=== PATIENT | male | born 1990 | race Hispanic/Latino ===

== ENCOUNTER 2019-05-07 18:02 | Emergency (ER) | payer MEDICAID, SELFPAY ==
[2019-05-07 18:04] VITALS: BP 153/102; PULSE 83; RESP 17; TEMP 36; O2SAT 99; BMI 33.3
--- NOTE | 2019-05-07 18:25 | ED.DCSUM_ITS ---
- ER Visit Summary Date of Service: 05/07/19 Chief Complaint: Suicidal ideation History of Present Illness: The patient is a 28 M presenting with suicidal ideation. Patient states he called the police because he was concerned that he may kill himself. He told the police that he wants to kill himself by cutting his throat. He states he is having marital and financial problems. He does have past suicide attempt with cutting. He does not see a psychiatrist or counselor. He is on no medications. He denies alcohol or drug use. Physical Examination: Vitals are stable. Patient is afebrile. Alert no acute distress. HEENT exam is unremarkable. Neck is supple. Lungs are clear and equal bilaterally. Heart is regular rate and rhythm. Abdomen is soft nontender nondistended. Extremities are unremarkable. Skin is warm and dry. No focal neurologic deficit. Depressed affect, suicidal ideation Remainder of exam is unremarkable. Emergency Department Course and Treatment: CBC, chemistries unremarkable. Tox is negative. Alcohol negative. Patient will be seen by the clinical social worker in the ED. Disposition: Per social work Impression: Suicidal ideation This note was generated with [employer] dictation software. It may contain incorrect words, spelling, and punctuation that were not noted in review of the chart prior to signing ED Disposition - Plan for ED Patient: Referrals: NOT,DEFINED [NON-STAFF] -
[2019-05-07 18:48] LABS: Absolute Lymphocyte Count 1.61 X10^3/uL (0.83-4.51); Absolute Neutrophil Count 6.5 X10^3/uL (2.0-7.7); Basophil# 0.02 X10^3/uL; Basophil% 0.2 % (0-1); Eosinophil# 0.21 X10^3/uL; Eosinophils% 2.3 % (0-5); Hematocrit 45.2 % (40-54); Hemoglobin 15.4 g/dL (13.0-16.5); Lymphocyte # 1.61 X10^3/ul (4.0); Mean Corp Hgb Conc 34.1 g/dL (32-36); Mean Corpuscular Hgb 30.3 pg (27.0-32.0); Mean Corpuscular Volume 88.8 fL (80-94); Monocyte% 6.7 % (0-10); NRBC Flagged by Analyzer 0 % (0-5); Neutrophil # 6.49 X10^3/uL (2.7-7.7); Neutrophil % 72.6 % (47-70); Platelet Count 257 K/mm3 (150-450); RBC Distribution Width SD 42.3 fl (35.1-43.9); Red Blood Count 5.09 M/mm3 (4.6-6.2)
[2019-05-07 19:00] LABS: Anion Gap 4 (5-15); BUN 15 mg/dL (7-18); BUN/Creat Ratio 16.3 RATIO (10-20); Calcium,Total 8.8 mg/dL (8.5-10.1); Chloride 113 mmol/L (98-107); Creatinine, Serum 0.92 mg/dL (0.70-1.30); EST Glomerular Filtration Rate 106 mL/min (>60); Est Glom Filt Rate - Afr Amer 128 mL/min (>60); Glucose 106 mg/dL (74-106); Potassium 3.7 mmol/L (3.5-5.1); Sodium Level 144 mmol/L (136-145)
[2019-05-07 19:16] LABS: Alcohol, Blood (Medical)-Serum < 3.0 mg/dL
[2019-05-07 19:17] LABS: Amphetamine Urine VISTA NEGATIVE (<1000 ng/mL); Barbiturate Urine VISTA NEGATIVE (< 200 ng/mL); Benzodiazepine Urine VISTA NEGATIVE (< 200 ng/mL); Cocaine Urine VISTA NEGATIVE (< 300 ng/mL); Ecstacy Urine VISTA NEGATIVE (< 500 ng/mL); Methadone Urine VISTA NEGATIVE (< 300 ng/mL); PCP Urine VISTA NEGATIVE (< 25 ng/mL); THC Urine VISTA NEGATIVE (< 50 ng/mL); Vista UDS pH Range 6
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
--- NOTE | 2019-05-07 20:05 | CM.ED ---
Social Work Telephone call to [facility], intake. Confirmed that they do accept patient insurance and there are open beds. Referral made. Clinical information faxed. Pending approval. Khloe PATE, KEYSHA
--- NOTE | 2019-05-07 20:55 | CM.ED ---
Social Work Telephone to [facility] to check on status of referral, patient has been accepted. Patient accepted to [address] [place] [address]. Accepting N.P is Eulalia Braxton. Nurse to call report to: [phone]. Updated patient, patient spouse (Reynaldo) and medical team. Opelika Slip faxed. Telephone call to patient spouse, Reynaldo to update on patient status. Reynaldo tearful. This social psychologist checking in to see how Reynaldo is doing. Reynaldo stating to have someone to call and talk with. Reynaldo stating to want patient to get help and to be agreeable to placement. Reynaldo stating to not be sure what to do for patient. This social psychologist updated patient that Reynaldo was updated via phone conversation and that Reynaldo was tearful and appeared to care for patient. Patient responding with no expression, flat affect. Khloe Russell MSW, KEYSHA
[2019-05-07 21:38] VITALS: BP 132/87; PULSE 91; RESP 16; O2SAT 99
[2019-05-07 22:42] VITALS: RESP 15
[2019-05-08] VITALS (9 sets, daily range): BP systolic 121–137; BP diastolic 73–93; PULSE 85–88; RESP 14–18; TEMP 36.8; O2SAT 98–99
--- NOTE | 2019-05-08 07:36 | NURSING ---
CLOTHES GIVEN TO EMS, TRANSPORT IS HERE AND GAVE REPORT TO [facility]. NO FURTHER QUESTIONS AT THIS TIME.
== END 2019-05-08 07:41 ==
PROVIDERS: Emergency Provider Emergency Medicine
DX: R45.851 Suicidal ideations (principal)
CPT/HCPCS: 80048; 80307; 80320; 85025; 99284; G0480

== ENCOUNTER 2019-09-27 07:04 | Emergency (ER) | payer MEDICAID, SELFPAY ==
[2019-09-27 07:06] VITALS: BP 149/94; PULSE 71; RESP 16; TEMP 36.3; O2SAT 98; BMI 36.5
--- NOTE | 2019-09-27 07:22 | ED.DCSUM_ITS ---
- ER Visit Summary Date of Service: 09/27/19 Chief Complaint: Head injury History of Present Illness: The patient is a 28 M male history of asthma for which he uses inhaler. 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 This occurred yesterday. He had no true LOC. Said he was slightly dazed. He had a helmet on. He did not fall. He has had some mild headache. No vomiting. He is not on blood thinners. He has had no significant head injury in the past. This is not Worker's Comp. Physical Examination: No acute distress vital signs stable afebrile. H EENT exam give dry reactive laser motions are intact. Is a small contusion on his left forehead with an abrasion. There is no significant swelling. There is no bony tenderness. Dentition intact. Right TM normal left TM scarred by wax. Scalp unremarkable nontender without hematoma. C-spine nontender normal range of motion. Lungs are clear. Heart regular rhythm no murmur. Abdomen soft nontender. Patient moving all 4 extremities. Neurovascularly intact. He has 5 out of 5 motor strength of both upper and lower extremities. Dorsi and plantar flexion is intact. Fingertip to nose within normal limits. Back exam nontender. Neurologically is awake and alert. No focal motor or sensory deficits. NIH is 0. GCS of 15. He can ambulate about the room without any difficulty. Test Results: None patient I discussed with no LOC and a normal neurologic exam and no's significant signs on exam or physically I do not think he needs any imaging. He is comfortable with that plan. Emergency Department Course and Treatment: Motrin for pain. Discharge. Treatment Plan: Follow-up with not improving. If he has continued signs of head injury but I told he most likely has a mild concussion this should improve. Disposition: Discharge Impression: Acute head injury This note was generated with [employer] dictation software. It may contain incorrect words, spelling, and punctuation that were not noted in review of the chart prior to signing ED Disposition - Plan for ED Patient: Referrals: Care Physician,No Primary [Primary Care Provider] -
--- NOTE | 2019-09-27 07:25 | ED.DEP ---
ED Disposition - Plan for ED Patient: Disposition: Home or Assisted Living Instructions: ED Head Injury Adult Referrals: Hugh Bowman MD [STAFF PHYSICIAN] - 1 Week if not improving Additional Instructions: Ice to left forehead. Tylenol and Motrin for pain. Follow-up if not improving if you have continued severe headaches, vomiting or other symptoms.
[2019-09-27] MEDS: Ibuprofen 400 MG Tablet 800 MG PO (07:26)
[2019-09-27 07:41] VITALS: RESP 16
== END 2019-09-27 08:03 | disposition home or self-care (01) ==
LOC: ED 07:39
PROVIDERS: Emergency Provider Emergency Medicine
DX: S09.90XA Unspecified injury of head, initial encounter (principal); W22.8XXA Striking against or struck by other objects, initial encounter; Y92.69 Other specified industrial and construction area as the place of occurrence of the external cause; Y93.01 Activity, walking, marching and hiking; Y99.0 Civilian activity done for income or pay; J45.909 Unspecified asthma, uncomplicated
CPT/HCPCS: 99282

== ENCOUNTER 2019-09-29 00:57 | Emergency (ER) | payer MEDICAID, SELFPAY ==
[2019-09-29 00:58] VITALS: BP 115/83; PULSE 74; RESP 16; TEMP 36.7; O2SAT 98; BMI 36.9
--- NOTE | 2019-09-29 01:10 | ED.VIS.GEN ---
History of Present Illness Chief Complaint: Headache Informant: Patient Narrative: She was recently seen a couple days ago in the emergency department. He struck his head on a metal michael. He suffered a mild concussion. He did not receive imaging at that time. Since the injury he has had mild lightheadedness mainly with quick movements. He has had mild nausea with no vomiting. He has had a mild left frontal headache where he struck the michael. Denies any neck injury. Denies any mental difficulties. Comes in because his discharge paperwork told him to monitor for the symptoms. He is sleeping okay. Current severity is mild. Past Medical History - Allergies and Home Meds Allergies/Adverse Reactions: Allergies No Known Allergies Allergy (Verified 09/29/19 01:02) Primary Care Physician: Care Physician,No Primary [Primary Care Provider] - Prior records reviewed: Yes Past Medical History: None Surgical History: - - Reviewed Lives: With Family Smoking Status: Never smoker Alcohol: None Drugs: None Review of Systems General: Denies: Chills, Fever, Sweats Eyes: Denies: Visual changes - bilaterally, Diplopia ENT: Denies: Rhinorrhea, Sore throat Cardiovascular: Denies: Chest pain, Palpitations Respiratory: Denies: Dyspnea, Cough, Dyspnea on exertion Gastrointestinal: Reports: Nausea. Denies: Abdominal pain, Vomiting, Diarrhea, Melena, Hematochezia Genitourinary: Denies: Dysuria, Hematuria, Frequency Musculoskeletal: Denies: Back pain, Extremity Pain Skin: Denies: Rash, Wounds Neurological: Reports: Headache. Denies: Weakness, Numbness Physical Exam Vital Signs/Narrative: Vital Signs Temp Pulse Resp BP Pulse Ox 09/29/19 00:58 98.0 F 74 16 115/83 H 98 General: Well nourished, Well developed, No Acute Distress Head: Normocephalic, Atraumatic Eyes: Perrl, EOMI ENT: Moist mucous membranes, No rhinorrhea Neck: Supple, Nontender Cardiovascular: Regular rate, Regular rhythm, No murmurs Respiratory: No distress, CTA bilaterally, Chest nontender Abdomen: Soft, Nontender, Nondistended, Normal bowel sounds Back: Nontender, Normal Inspection Extremities: Nontender, No edema Skin: Normal color, No rash Neurological: Alert, Oriented x3, Cranial nerves II-XII grossly intact, Normal Strength, Normal Sensation, Normal DTR, Normal Gait. Negative for: Confused, Disoriented Psychological: Normal affect, Normal Mood Diagnostic/Tx/Re-eval - Medical Decision Making Patient given a dose of Zofran. Reassured. I do not feel he needs imaging. He has a normal neurologic exam. I feel he just has mild persistent symptoms for his concussion. He is aware that this may last for weeks if not months. He will follow-up as an outpatient ED Disposition - Plan for ED Patient: Disposition: Home or Assisted Living Diagnosis: Concussion Instructions: ED Concussion Referrals: Tab Corbin MD [STAFF PHYSICIAN] -
[2019-09-29] MEDS: Ondansetron ODT 4 MG Tablet 8 MG PO (01:19)
[2019-09-29 01:21] VITALS: PULSE 74; RESP 16; O2SAT 98
== END 2019-09-29 01:44 | disposition home or self-care (01) ==
LOC: ED 01:22
PROVIDERS: Emergency Provider Emergency Medicine
DX: S06.0X9A Concussion with loss of consciousness of unspecified duration, initial encounter (principal); W22.8XXA Striking against or struck by other objects, initial encounter; Y93.9 Activity, unspecified; Y92.9 Unspecified place or not applicable; Y99.9 Unspecified external cause status
CPT/HCPCS: 99283

== ENCOUNTER 2019-10-03 03:19 | Emergency (ER) | payer MEDICAID, SELFPAY ==
[2019-10-03 03:20] VITALS: BP 137/72; PULSE 82; RESP 16; TEMP 36.6; O2SAT 99; BMI 36.8
--- NOTE | 2019-10-03 03:39 | CT_ITS ---
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 Findings: CT images of the head were obtained without contrast. Mucoperiosteal thickening within the right maxillary sinus. Brain volume is normal No acute intracranial edema or hemorrhage. No acute abnormality of orbits. Middle ear cavities and mastoid air cells are well aerated. Skull is normal. CT/Brain/Head without Contrast IMPRESSION: No acute intracranial abnormality. Chronic changes as above. ASPECT 10. Individualized dose optimization techniques were used for this CT. at 0428 Reported and signed by: Rao Quinones MD Electronically Signed: Rao Quinones MD at 4:27 EDT Tel , Service support ,
--- NOTE | 2019-10-03 03:39 | ED.DCSUM_ITS ---
History of Present Illness Chief Complaint: Nausea/Vomiting Informant: Patient Narrative: Patient sustained a head injury at work about a week ago after which he had dizziness, nausea and a headache, the headache and dizziness have significantly improved but now he has had 3 episodes of vomiting at work today. He has no vision changes, he has no weakness or paresthesias he has no confusion. Past Medical History - Allergies and Home Meds Allergies/Adverse Reactions: Allergies No Known Allergies Allergy (Verified 10/03/19 03:20) Primary Care Physician: Care Physician,No Primary [Primary Care Provider] - Past Medical History: - - Asthma Surgical History: - - Reviewed Smoking Status: Never smoker Review of Systems All systems negative except as indicated General: Denies: Fever Eyes: Denies: Visual changes - bilaterally ENT: Denies: Sore throat Cardiovascular: Denies: Chest pain Respiratory: Denies: Dyspnea, Cough, Sputum Gastrointestinal: Reports: Nausea, Vomiting. Denies: Abdominal pain Musculoskeletal: Denies: Myalgias, Arthralgias, Neck pain Skin: Reports: - - He has a left forehead abrasion which is healing. Denies: Rash Neurological: Reports: Headache, - - No current headache, dizziness is significantly improved, no weakness or sensory deficits. Hematologic: Denies: Easy bleeding Physical Exam Vital Signs/Narrative: Vital Signs Temp Pulse Resp BP Pulse Ox 10/03/19 03:20 97.9 F 82 16 137/72 H 99 General: Well nourished, Well developed Head: Normocephalic, - - Very small left forehead abrasion which is healing quite well Eyes: Perrl, EOMI ENT: Moist mucous membranes, - - No other facial trauma Neck: Supple, Nontender, - - No C-spine tenderness Cardiovascular: Regular rate, Regular rhythm, No murmurs Respiratory: No distress, CTA bilaterally Abdomen: Soft, Nontender Back: Nontender, Normal Inspection Extremities: Nontender, No edema. Negative for: Tenderness Skin: Normal color Neurological: Alert, Oriented x3, Cranial nerves II-XII grossly intact, Normal Strength, Normal Sensation Psychological: Normal affect Diagnostic/Tx/Re-eval - Medical Decision Making DT is negative, he has concussion symptoms, he was given concussion precautions and he will be discharged with antiemetics. ED Disposition - Plan for ED Patient: Disposition: Home or Assisted Living Instructions: ED Concussion Prescriptions: Ondansetron [Zofran Odt] 4 mg PO Q8H PRN PRN #10 tab PRN Reason: Nausea Transmission Status: Pending to [id number] Referrals: Care Physician,No Primary [Primary Care Provider] - 3-5 Days Corporate,Care [GROUP OF PHYSICIANS] -
[2019-10-03] MEDS: Ondansetron ODT 4 MG Tablet PO (03:52)
[2019-10-03 04:41] VITALS: BP 132/70; PULSE 76; RESP 16; O2SAT 98
== END 2019-10-03 04:42 | disposition home or self-care (01) ==
PROVIDERS: Emergency Provider Emergency Medicine
DX: R11.2 Nausea with vomiting, unspecified (principal); S00.81XA Abrasion of other part of head, initial encounter; X58.XXXA Exposure to other specified factors, initial encounter; Y93.89 Activity, other specified; Y92.89 Other specified places as the place of occurrence of the external cause; Y99.0 Civilian activity done for income or pay; J45.909 Unspecified asthma, uncomplicated
CPT/HCPCS: 70450; 99283

== ENCOUNTER 2019-12-12 23:27 | Emergency (ER) | payer MEDICAID, SELFPAY ==
[2019-12-12 23:28] VITALS: BP 159/88; PULSE 95; RESP 18; TEMP 36.7; O2SAT 100; BMI 33.7
[2019-12-12 23:42] VITALS: BP 134/66; PULSE 95; RESP 18; O2SAT 100
--- NOTE | 2019-12-12 23:42 | ED.VIS.GEN ---
History of Present Illness Chief Complaint: Eye Problem Informant: Patient Narrative: 29-year-old male presenting with a pinpoint area of redness in his right eye. He noticed this after he had a sneeze attack today at work. He states he has seasonal allergies and takes Claritin for this. He does not have any eye pain, visual changes, headache. He denies any eye trauma. He is not had drainage or discharge from the right eye. Past Medical History - Allergies and Home Meds Allergies/Adverse Reactions: Allergies No Known Allergies Allergy (Verified 12/12/19 23:30) Primary Care Physician: Care Physician,No Primary [Primary Care Provider] - Past Medical History: - - Seasonal allergies Surgical History: noncontributory, - - Reviewed Lives: Spouse/ Significant Other Smoking Status: Never smoker Alcohol: None Drugs: None Review of Systems General: Denies: Chills, Fever, Sweats Eyes: Reports: -. Denies: Visual changes - bilaterally, Diplopia Cardiovascular: Reports: Chest pain, Palpitations Respiratory: Reports: - - Sneezing. Denies: Dyspnea, Cough Gastrointestinal: Reports: Abdominal pain, Nausea Genitourinary: Denies: Dysuria, Hematuria, Frequency Musculoskeletal: Denies: Back pain, Extremity Pain Skin: Denies: Rash, Wounds Neurological: Denies: Headache, Weakness, Numbness Physical Exam Vital Signs/Narrative: Vital Signs Temp Pulse Resp BP Pulse Ox 12/12/19 23:28 98.1 F 95 18 159/88 H 100 Inital Vital Signs reviewed: Yes General: Well nourished, Well developed, No Acute Distress Head: Normocephalic, Atraumatic Eyes: Perrl, EOMI, - - Pinpoint area of redness in the lateral aspect of the right eye. Patient's vision is unobscured. No abnormalities of the lids or lashes. ENT: Moist mucous membranes, No rhinorrhea Cardiovascular: Regular rate, Regular rhythm, No murmurs Respiratory: No distress, CTA bilaterally, Chest nontender Skin: Normal color, No rash Neurological: Alert, Oriented x3 Psychological: Normal affect, Normal Mood Diagnostic/Tx/Re-eval - Medical Decision Making Patient has a subconjunctival hemorrhage which is very small. It is nontender. Vision is unchanged. He has no signs of conjunctivitis. This occurred after a sneeze attack he states he had at work today. Patient is counseled that this is benign. This will eventually resolve on its own. Patient will take his Claritin at home for allergies. Patient stable for discharge. Impression: 1. Subconjunctival hemorrhage ED Disposition - Plan for ED Patient: Disposition: Home or Assisted Living Instructions: ED EYE INJURY Subconj Hemorrhage Referrals: Care Physician,No Primary [Primary Care Provider] -
== END 2019-12-13 00:14 | disposition home or self-care (01) ==
LOC: ED 23:54
PROVIDERS: Emergency Provider Student in an Organized Health Care Education/Training Program
DX: H11.31 Conjunctival hemorrhage, right eye (principal)
CPT/HCPCS: 99282

== ENCOUNTER 2020-05-23 14:13 | Emergency (ER) | payer MEDICAID, SELFPAY ==
[2020-05-23 14:14] VITALS: BP 129/69; PULSE 98; RESP 15; TEMP 36.3; O2SAT 97; BMI 34.9
--- NOTE | 2020-05-23 15:01 | ED.VIS.GEN ---
History of Present Illness Chief Complaint: Other, Pain/Inj Informant: Patient Narrative: Patient is a 29-year-old previously healthy male who presents to the emergency department for nontraumatic tailbone pain. This started upon awaking this morning. He states that while at rest it is around a 3 out of 10. Any movements, bending or straining to have bowel movement seems to aggravate it. He has never had this happen before. She denies any abdominal pain or radiation of the pain. He denies any rectal pain. He states he has been straining to have bowel movements. He did have some bright red blood when wiping yesterday but this since resolved. He denies any urinary symptoms. He has not been taking anything for his symptoms. He denies any nausea or vomiting. Denies any fevers or chills. Past Medical History - Allergies and Home Meds Allergies/Adverse Reactions: Allergies No Known Allergies Allergy (Verified 05/23/20 14:18) Primary Care Physician: Hugh Bowman MD [STAFF PHYSICIAN] - 3-5 Days Care Physician,No Primary [Primary Care Provider] - Prior records reviewed: Yes Past Medical History: - - Asthma Surgical History: noncontributory, - - Reviewed Smoking Status: Current some day smoker Review of Systems All systems negative except as indicated General: Denies: Chills, Fever, Sweats Eyes: Denies: Visual changes - bilaterally, Diplopia ENT: Denies: Rhinorrhea, Sore throat Cardiovascular: Denies: Chest pain, Palpitations Respiratory: Denies: Dyspnea, Cough, Dyspnea on exertion Gastrointestinal: Reports: Constipation. Denies: Abdominal pain, Nausea, Vomiting, Diarrhea Genitourinary: Denies: Dysuria, Hematuria, Frequency Musculoskeletal: Reports: Back pain. Denies: Extremity Pain Skin: Denies: Rash, Wounds Neurological: Denies: Headache, Weakness, Numbness Physical Exam Vital Signs/Narrative: Vital Signs Temp Pulse Resp BP Pulse Ox 05/23/20 14:14 97.4 F L 98 15 129/69 H 97 Inital Vital Signs reviewed: Yes General: Well nourished, Well developed, No Acute Distress Head: Normocephalic, Atraumatic Eyes: Perrl, EOMI ENT: Moist mucous membranes, No rhinorrhea Neck: Supple, Nontender Cardiovascular: Regular rate, Regular rhythm, No murmurs Respiratory: No distress, CTA bilaterally, Chest nontender Abdomen: Soft, Nontender, Nondistended, Normal bowel sounds Rectal: - - No obvious abnormality. No overlying skin changes. Back: Normal Inspection, - - Mild tenderness at the lumbosacral junction. . Negative for: CVA tenderness, Spinal tenderness Extremities: Nontender, No edema Skin: Normal color, No rash Neurological: Alert, Oriented x3, Cranial nerves II-XII grossly intact, Normal Strength, Normal Sensation Psychological: Normal affect, Normal Mood Diagnostic/Tx/Re-eval - Medical Decision Making Patient presents to the emergency department for nontraumatic tailbone pain. He does have a history of constipation and had some blood in his stool yesterday. No melena. On physical exam he has full range of motion of lower extremities. It is worse with motion and does have tenderness to palpation. I believe this more musculoskeletal strain. Will place him on Naprosyn and also Colace for the hard bowel movements. I do not feel any imaging is necessary at this time. Low concern for infection. He does not have a PCP and does need close follow-up so I provided him one from the follow-up list. Will discharge home in stable condition. All questions answered. ED Disposition - Plan for ED Patient: Disposition: Home or Assisted Living Diagnosis: Coccygeal pain, Constipation Instructions: ED Constipation (Adult), ED Pain, Acute, Uncertain Cause Prescriptions: Docusate Sodium [Colace] 100 mg PO DAILY 14 Days #14 cap Transmission Status: Received by [facility]pharmacy #[id number] Naproxen [Naprosyn] 500 mg PO BID PRN PRN 10 Days #20 tab PRN Reason: Pain/Inflammation Transmission Status: Received by [facility]pharmacy #[id number] Referrals: Care Physician,No Primary [Primary Care Provider] - Hugh Bowman MD [STAFF PHYSICIAN] - 3-5 Days
== END 2020-05-23 15:31 | disposition home or self-care (01) ==
LOC: ED 15:15
PROVIDERS: Emergency Provider Emergency Medicine
DX: M53.3 Sacrococcygeal disorders, not elsewhere classified (principal); K59.00 Constipation, unspecified; J45.909 Unspecified asthma, uncomplicated
CPT/HCPCS: 99282

== ENCOUNTER 2020-05-26 11:53 | Emergency (ER) | payer MEDICAID, SELFPAY ==
[2020-05-26 11:55] VITALS: BP 154/102; PULSE 109; RESP 18; TEMP 35.8; O2SAT 95; BMI 37.5
--- NOTE | 2020-05-26 12:16 | ED.VIS.GEN ---
History of Present Illness Chief Complaint: Asthma Informant: Patient Narrative: 29-year-old male concern for shortness of breath. He states he has asthma. He states when he overeats he typically will get short of breath for some reason this triggers his asthma. He over ate last night. He states he ate all of his food at about day and then ate his 's food. He felt short of breath last night and continues to feel that way today. It does seem to improve a little bit with an inhaler. Patient denies any chest pain. Patient denies any other medical problems. No exposure to COVID-19. He has no other symptoms. Past Medical History - Allergies and Home Meds Allergies/Adverse Reactions: Allergies No Known Allergies Allergy (Verified 05/26/20 11:57) Primary Care Physician: Care Physician,No Primary [Primary Care Provider] - Past Medical History: - - Asthma Surgical History: noncontributory, - - Reviewed Smoking Status: Current every day smoker Alcohol: None Drugs: None Review of Systems General: Denies: Chills, Fever, Sweats Eyes: Denies: Visual changes - bilaterally, Diplopia ENT: Denies: Rhinorrhea, Sore throat Cardiovascular: Denies: Chest pain, Palpitations Respiratory: Reports: Dyspnea. Denies: Cough, Sputum, Dyspnea on exertion Gastrointestinal: Denies: Abdominal pain, Nausea, Vomiting, Diarrhea, Melena, Hematochezia Genitourinary: Denies: Dysuria, Hematuria, Frequency Musculoskeletal: Denies: Back pain, Extremity Pain Skin: Denies: Rash, Wounds Neurological: Denies: Headache, Weakness, Numbness Psych: Denies: Depression, Anxiety, Suicidal thoughts, Suicidal ideations, -, - Physical Exam Vital Signs/Narrative: Vital Signs Temp Pulse Resp BP Pulse Ox 05/26/20 11:55 96.5 F L 109 H 18 154/102 H 95 Diagnostic/Tx/Re-eval - Medical Decision Making 29-year-old male presenting for concern for asthma flare. He is not wheezing on exam but states breathing treatments would help. He is given prednisone and breathing treatments and feels improved. Patient will be given a prednisone burst for home. Patient was given return precautions and he stable for discharge at this time. Impression: 1. Acute asthma exacerbation ED Disposition - Plan for ED Patient: Disposition: Home or Assisted Living Instructions: ED Asthma, Acute (Adult) Prescriptions: predniSONE tablet 60 mg PO DAILY #15 tablet Prescription Printed Referrals: Care Physician,No Primary [Primary Care Provider] -
--- NOTE | 2020-05-26 12:35 | RAD_ITS ---
STUDY: X-RAY CHEST REASON FOR EXAM: Male, 29 years old. Shortness of breath TECHNIQUE: Single AP portable view of the chest. COMPARISON: None. FINDINGS: Scattered calcified granulomas. No acute abnormality is seen. There is no demonstrated pleural abnormality. Normal size heart. Calcified right hilar lymph nodes. Normal visualized pulmonary arteries. Normal visualized aortic arch and descending thoracic aorta. Normal visualized thoracic spine. Normal visualized ribs, clavicles, and shoulders. There is no demonstrated abnormality of the visualized soft tissue structures of the upper abdomen. RAD/Chest 1 View IMPRESSION: Normal x-ray examination of the chest. Electronically Signed: Michael Camilo MD at 12:57 EDT , Service support ,
[2020-05-26] MEDS: Albuterol 2.5 MG/3 ML VIAL.NEB. INHALATION (12:42)
[2020-05-26] MEDS: Ipratropium/Albuterol Sulfate 3 ML AMPUL.NEB INHALATION (12:43)
[2020-05-26 12:46] VITALS: PULSE 118; RESP 18; O2SAT 97
[2020-05-26] MEDS: predniSONE 20 MG Tablet 60 MG PO (13:27)
[2020-05-26 13:48] VITALS: PULSE 81; RESP 20; O2SAT 98
--- NOTE | 2020-05-26 13:56 | ED.RN ---
THIS NURSE REVIEWED D/C INSTRUCTIONS WITH PT. PT VERBALIZED UNDERSTANDING OF INSTRUCTIONS. PT DENIES FURTHER NEEDS OR QUESTIONS AT THIS TIME. PT AMBULATES FROM ROOM ON OWN WITHOUT ASSISTANCE FROM STAFF
== END 2020-05-26 13:57 | disposition home or self-care (01) ==
PROVIDERS: Emergency Provider Student in an Organized Health Care Education/Training Program
DX: J45.901 Unspecified asthma with (acute) exacerbation (principal); F17.200 Nicotine dependence, unspecified, uncomplicated
CPT/HCPCS: 71045; 94640; 99283

== ENCOUNTER 2020-08-11 12:01 | Emergency (ER) | payer MEDICAID, SELFPAY ==
[2020-08-11 12:02] VITALS: BP 149/82; PULSE 82; RESP 16; TEMP 35.5; O2SAT 97; BMI 35.5
--- NOTE | 2020-08-11 12:14 | EDS_ITS ---
HPI History of Present Illness Chief Complaint: Lower Extremity Injury Informant: patient Onset/Context/Timing Onset: Yesterday Context: Gradual Onset Timing: Intermittent Current Severity: Moderate Maximum Severity: Moderate Narrative Narrative: The patient is a 29-year-old male presents to the emergency department knee pain. Patient states he was at work yesterday. He states he had pain in his knee. He went to [place]. He states he had x-rays which were unremarkable. He states that he is been taking ibuprofen which is helped with the pain. He presents today because he feels like he needs an MRI. The knee has not given out on him. He denies any fevers or chills. He denies any swelling. Prior similar symptoms: No Recent Illness/Hospitalization: No PFSH PFSH Home Medications prednisone 60 mg PO DAILY #15 tablet 05/26/20 [Rx Last Taken Unknown] Allergy/AdvReac Type Severity Reaction Status Date / Time No Known Allergies Allergy Verified 08/11/20 12:03 Social History Smoking Status: Smoker, status unknown ROS ROS ED Constitutional Constitutional ED: Denies chills or fever(s) Eyes Eyes: Denies blurry vision or change in vision ENT ENT ED: Denies ear pain or sore throat Cardiovascular Cardiovascular: Denies chest pain or palpitations Respiratory/Chest Respiratory/Chest: Denies cough, dyspnea or dyspnea on exertion Gastrointestinal Gastrointestinal: Denies abdominal pain, nausea or vomiting Genitourinary Genitourinary ED: Denies dysuria or urinary frequency Musculoskeletal Musculoskeletal: Denies arthralgias or myalgias Integumentary Denies rash Neurologic Neurologic: Denies headache(s) or paresthesias Psychiatric Psychiatric: Denies anxiety or depression Endocrine Endocrinology: Denies polydipsia or polyuria Allergic/Immunologic Allergic/Immunologic ED: Denies urticaria EXAM Physical Exam Const Vital Signs: 08/11/20 12:02 Temperature 95.9 F L Temperature Source Temporal Pulse Rate 82 Respiratory Rate 16 Blood Pressure 149/82 H Blood Pressure Mean 104 Pulse Ox 97 Oxygen Delivery Method Room Air Positive well nourished and well developed General Appearance ED: well developed HEENT Reports normocephalic, head/scalp atraumatic and moist mucous membranes Eyes PERRL and EOMs intact bilaterally Neck no lymphadenopathy and supple General: Negative for tenderness Chest Wall inspection of chest normal Resp normal respiratory effort and clear to auscultation bilaterally Cardio regular rate, regular rhythm and no murmurs GI normal to inspection, nondistended, normoactive bowel sounds Palpation: Negative for tender, guarding or rebound tenderness present Back/Spine no CVA tenderness Cervical Spine: Negative for cervical spine tenderness Thoracic Spine / Upper Back: Negative for thoracic spinal tenderness Extremity normal to inspection Extremity Narrative: There is no gross laxity of the knee. Extension is preserved. There is no effusion. There is no warmth or edema. His pulses are normal. Anterior posterior drawer testing are negative. There is no grinding or clicking. General Extremety ED: Negative for tenderness Neuro oriented x3 and CN's II-XII intact bilaterally Neuro Narrative: No focal deficits appreciated. Sensorium / Orientation: alert Psych mental status grossly normal Skin no rashes or lesions noted, no wounds and skin turgor normal MDM MDM MDM Narrative Medical decision making narrative: Patient presents with less than 24 hours of knee pain requesting an MRI. There is no gross laxity of the knee. He said no trauma. I do not feel the plain films need to be repeated. I did assistant corporation counsel him that he should follow-up with orthopedics and continues anti-inflammatories. He will be discharged home. Impression 1. Right knee strain Discharge Plan Triage Chief Complaint: Lower Extremity Injury ED Provider: Jaspreet Wahl Dx/Rx/DC Orders Instructions: ED Knee Sprain Prescriptions: No Action prednisone 20 MG tablet 60 mg PO DAILY Qty: 15 RF: 0 Stand Alone Forms: ED Work / School Excuse Primary Care Provider: Care Physician,No Primary Referrals: Bill Ely MD [STAFF PHYSICIAN] - 3-5 Days Care Physician,No Primary [Primary Care Provider] -
[2020-08-11 12:37] VITALS: PULSE 85; RESP 16; O2SAT 99
== END 2020-08-11 12:37 | disposition home or self-care (01) ==
PROVIDERS: Emergency Provider Emergency Medicine
DX: S83.91XD Sprain of unspecified site of right knee, subsequent encounter (principal); X58.XXXD Exposure to other specified factors, subsequent encounter; F17.200 Nicotine dependence, unspecified, uncomplicated; Z79.52 Long term (current) use of systemic steroids
CPT/HCPCS: 99282